=== PATIENT | female | born 1990 ===

== ENCOUNTER → 2023-07-21 13:56 | Outpatient (REF) | payer OTHER, SELFPAY | LOC: EMG 13:56 | PROVIDERS: ATTENDING PHYSICIAN Orthopaedic Surgery | DX: M79.632 Pain in left forearm (principal); M54.12 Radiculopathy, cervical region | CPT/HCPCS: 95886; 95911 ==

== ENCOUNTER → 2023-08-07 11:01 | Outpatient (REF) | payer OTHER, SELFPAY | LOC: RAD 11:01 | PROVIDERS: ATTENDING PHYSICIAN Nurse Practitioner | DX: S62.001A Unspecified fracture of navicular [scaphoid] bone of right wrist, initial encounter for closed fracture (principal) | CPT/HCPCS: 73200 ==

== ENCOUNTER → 2023-08-21 14:35 | Outpatient (REF) | payer OTHER, SELFPAY | LOC: RAD 14:35 | PROVIDERS: ATTENDING PHYSICIAN Nurse Practitioner | DX: I82.1 Thrombophlebitis migrans (principal) | CPT/HCPCS: 73206; Q9967 ==